=== PATIENT | female | born 1985 | race African-American/Black ===

== ENCOUNTER 2019-03-21 18:06 | Emergency (ER) | payer OTHER ==
[~2019-03-21] VITALS: Ht 160 cm; Wt 101.6 kg
[2019-03-21 19:50] LABS: ABSOLUTE NEUTROPHILS 3.5 thou/uL (1.4-8.2); BASOPHILS 0.3 % (0.0-2.0); EOSINOPHILS 1.2 % (0.0-3.0); HEMATOCRIT 37.9 % (37.0-47.0); HEMOGLOBIN 12.4 gm/dL (12.0-15.0); LYMPHOCYTES 33.6 % (24.0-44.0); MCH 26.4 pg (26.0-34.0); MCHC 32.6 g/dL (28.0-37.0); MCV 80.9 fL (80.0-100.0); MONOCYTES 11.6 % (1.0-8.0); PLATELET COUNT 355 thou/uL (150-400); POLYS 53.3 % (36.0-66.0); RBC 4.69 mil/uL (4.20-5.00); RDW 16.3 % (10.5-14.5); WBC 6.5 thou/uL (4.0-11.0)
[2019-03-21 19:58] LABS: ANION GAP 7 mmol/L (7-16); BUN 12 mg/dL (7-18); CALCIUM 9.1 mg/dL (8.5-10.1); CHLORIDE 103 mmol/L (98-107); CO2 26 mmol/L (21-32); CREATININE 1.1 mg/dL (0.6-1.0); GLUCOSE 83 mg/dL (74-106); POTASSIUM 3.8 mmol/L (3.5-5.1); SODIUM 136 mmol/L (136-145)
[2019-03-21 20:08] LABS: ALBUMIN 3.4 g/dL (3.4-5.0); MAGNESIUM 2.2 mg/dL (1.8-2.4); SGOT 16 U/L (15-37); SGPT 21 U/L (30-65); TOTAL BILIRUBIN < 0.1 mg/dL (<0.1-1.0); TOTAL PROTEIN 8.6 g/dL (6.4-8.2); TROPONIN-I <0.06 ng/mL (<0.06)
[2019-03-21] MEDS ORDERED: TYLENOL325 MG PO (21:00)
[2019-03-21 21:20] VITALS: BP 150/93
--- NOTE | 2019-03-22 08:03 | EKG ---
[place] [address] [facility] [employer] [address] ELECTROCARDIOGRAM REPORT Name: MIRTA SALAZAR [facility]: [facility] [id number] ������������������ Admission: 03/21/19 ������������������ Attend Phys: Discharge: 03/21/19 ������������������ Date of : 89 Report #: [id number] ����������������������������������������������������������������� [id number] THIS REPORT FOR: //name// [facility] ED Test Date: 2019-03-21 Test Time: 18:21:53 Pat Name: MIRTA SALAZAR Department: Room: Gender: F Director Medical Science: . : 1985 Requested By: Fabián Perez Order Number: [id number] MD: Jak Mistry Measurements Intervals [place] Rate: 96 P: 40 CA: 134 QRS: 39 QRSD: 76 T: 9 QT: 327 QTc: 414 Interpretive Statements Sinus rhythm Normal tracing No previous ECG available for comparison Electronically Signed On 03-22-2019 8:03:43 CDT by Jak Mistry [email or web address] ��������������������������������������������� <ELECTRONICALLY SIGNED> ���������������������������������������� By: Jak Mistry MD, [facility] ��������������������������������������������� 03/22/19 [id number] Jak Mistry MD, FACC /EPI
== END 2019-03-21 21:21 | disposition home or self-care (01) ==
LOC: ER 18:06
PROVIDERS: Emergency Medicine
DX: R07.89 Other chest pain (principal); G43.909 Migraine, unspecified, not intractable, without status migrainosus; R20.0 Anesthesia of skin; M79.602 Pain in left arm; R06.02 Shortness of breath